=== PATIENT | female | born 1970 | race Caucasian/White ===

== ENCOUNTER 2019-04-23 10:57 | Day surgery (SDC) | payer OTHER, SELFPAY | END 2019-04-23 13:14 | disposition home or self-care (01) | PROVIDERS: Family Provider Family Medicine; Visit Provider Surgery | DX: R19.5 Other fecal abnormalities (principal); D12.2 Benign neoplasm of ascending colon; D12.4 Benign neoplasm of descending colon; K21.9 Gastro-esophageal reflux disease without esophagitis; Z83.3 Family history of diabetes mellitus | CPT/HCPCS: 45380; 45385; 88305; J2704 ==

== ENCOUNTER 2021-05-19 10:07 | Outpatient (CLI) | payer OTHER, SELFPAY ==
--- NOTE | 2021-05-19 10:14 | MM_ITS ---
WS: [id number] BILATERAL SCREENING DIGITAL MAMMOGRAM WITH CAD HISTORY: SCREENING COMPARISON: 11/20/2018 Bilateral CC and MLO views submitted. Computer aided detection analyzed. Breast composition: There are scattered areas of fibroglandular density. No suspicious masses, microc alcifications or architectural distortion. Prior biopsy clip upper outer quadrant of the LEFT breast. Calcifications adjacent to the biopsy clip are unchanged. MM/[place] [id number] IMPRESSION: BI-RADS: 2-Benign FOLLOW UP: 1 Year Follow-up
== END 2021-05-19 10:08 | disposition home or self-care (01) ==
LOC: RADSHAW 10:12
PROVIDERS: PCP Family Medicine; Visit Provider Family Medicine
DX: Z12.31 Encounter for screening mammogram for malignant neoplasm of breast (principal)
CPT/HCPCS: 77067

== ENCOUNTER 2021-12-12 17:36 | Emergency (ER) | payer OTHER, SELFPAY ==
[2021-12-12 17:57] VITALS: BP 115/76; PULSE 104; RESP 16; TEMP 37; O2SAT 96; BMI 24.4
--- NOTE | 2021-12-12 18:27 | ED_ITS ---
HPI - Nausea/Vomiting/Diarrhea General: Chief complaint: Nausea/Vomiting/Diarrhea Stated complaint: dehydration/possible seizure/vomiting Time Seen by Provider: 12/12/21 18:26 History of Present Illness: Ms. Willis is a 51-year-old lady who presents to the emergency department due to abdominal pain, nausea, vomiting. Symptoms started subacutely this morning without specific known provoking factor. She has had multiple episodes of vomiting that have occurred multiple times per hour. No hematemesis. Mostly water/stomach contacts at this point. She additionally is noted to have stuttering and is confused about possibility of stroke. Overall course has persisted. She has had similar episodes in the past. Intensity is moderate to severe. No other specific perales es in health, exacerbating, or alleviating factors identified. Onset (ago): hour(s) Description of vomiting: watery Associated nausea: Yes Associated abdominal pain: Yes Location of pain: Diffuse Severity: moderate Quality: cramping Exacerbating factors: eating Relieving factors: none Associated symtoms: Reports nausea Review of Systems General: Reports: 10 or more systems reviewed and unremarkable except in HPI and below GI: Reports: nausea PFSH ED PFSH: Medical History (Updated 12/19/21 @ 23:45 by Roberto Seymour MD) History of renal calculi Surgical History (Updated 12/19/21 @ 23:45 by Roberto Seymour MD) History of carpal tunnel release of both wrists Social History (Updated 12/19/21 @ 23:45 by Roberto Seymour MD) Smoking and tobacco status: never smoked Physical Exam Const: COMMON NORMALS: patient oriented x3 and alert GENERAL APPEARANCE: cooperative, well developed and ill appearing (Somewhat, vomiting) HENMT: COMMON NORMALS: normocephalic and atraumatic HEAD & SCALP: normocephalic and atraumatic Eye: COMMON NORMALS: conjunctivae normal CONJUNCTIVA: Yes conjunctivae normal SCLERA: sclerae normal Neck/C-Spine: COMMON NORMALS: supple GENERAL: Yes trachea midline Resp: COMMON NORMALS: normal respiratory effort EFFORT & INSPECTION: Yes able to speak in complete sentences Cardio: COMMON NORMALS: regular rhythm RATE: tachycardic RHYTHM: regular rhythm GI: COMMON NORMALS: Soft to palpation PALPATION: Yes Soft to palpation, Yes Tenderness to palpation present (GI), No Guarding due to palpation present (GI), No Rigid due to palpation and No Rebound tenderness present PERCUSSION: normal to percussion Extremity: GENERAL: Yes normal exam except as noted and No edema Neuro: COMMON NORMALS: patient oriented x3, CN's II-XII intact bilaterally, moves all extremities, no focal motor deficits and no sensory deficits noted SENSORIUM/ORIENTATION: Yes alert and No Orientation impaired OTHER: Intermittent stutter Psych: COMMON NORMALS: mental status grossly normal and Normal thought process present THOUGHT PROCESS: Normal thought process present Course ED course: - Patient was seen and evaluated by me at bedside - Patient placed on cardiac monitors, IV access obtained - Initial evaluation notable for exam as above - Labs personally interpreted by me - Fluids and antiemetic given - Labs notable for mild leukocytosis, hemoconcentration. Metabolic panel with evidence of dehydration. No evidence of urinary tract infection given nitrate negative and squamous epithelial contamination. - Imaging notable for negative head CT. CT abdomen pelvis notable for gastritis and enteritis. - Upon serial reexamination after treatment the patient was improved - Based on patient history, evaluation, and testing as interpreted the most likely cause of the patient's condition is gastritis and enteritis. In absence of other neurologic symptoms started is not felt to be primary neuro. - The results of ED evaluation were discussed with the patient including prescriptions and/or symptomatic cares (if applicable) including appropriate and responsible use, followup plan, and return precautions. The patient verbalized understanding and felt safe for discharge. - Patient discharged in satisfactory condition. Note: Click bubbles or prepopulated troy in note writing are used for assistance with data collection and billing and are inherently more limited than narrative and other text portions of this note. Please use narrative for additional clinical history and defer to narrative/free test for any case of contradictory information. If information appears in only free text or click bubble it should be considered present or absent as reported. Please contact note appeals writer for clarifications of clinical information or contradictory information. MDM is a brief summary, contradictory or erroneous seeming information should be clarified and full note should be reviewed. Vital Signs: Vital signs: Vital Signs Temperature 98.6 F 12/12/21 22:18 Pulse Rate 76 12/12/21 22:18 Respiratory Rate 16 12/12/21 22:18 Blood Pressure 113/67 12/12/21 22:18 Pulse Oximetry 97 12/12/21 22:18 MDM - Nausea/Vomiting/Diarrhea Medical Decision Making 51-year-old lady presenting with concern over nausea, vomiting, abdominal discomfort, and stutter. Improved with treatment. Tolerated p.o. CT imaging notable for gastritis and enteritis. Satisfactory for outpatient management. Medical Records I reviewed the patient's medical records. Lab Data I reviewed the patient's lab results. : 12/12/21 19:00 12/12/21 19:00 Radiology Impressions Abdomen/Pelvis CT 12/12/21 18:52 IMPRESSION: 1. The stomach is distended with fluid and air. The gastric antrum appears thickened, which may indicate mild gastritis. 2. Mild mural thickening of the proximal/mid small bowel with mucosal enhancement. Consider mild enteritis. 3. No acute abnormality demonstrated of the solid organs. Head CT 12/12/21 18:52 IMPRESSION: No significant findings Laboratory Results WBC 12.8 10^3/uL (4.0-10.0) H 12/12/21 19:00 RBC 5.26 10^6/uL (4.1-5.3) 12/12/21 19:00 Hgb 15.8 g/dL (11.5-15.3) H 12/12/21 19:00 Hct 47.8 % (37.0-47.0) H 12/12/21 19:00 MCV 90.9 fl (81-99) 12/12/21 19:00 MCH 30.0 pg (28.0-34.0) 12/12/21 19:00 MCHC 33.1 g/dL (30.0-36.0) 12/12/21 19:00 RDW 13.0 % (12.1-15.1) 12/12/21 19:00 Plt Count 256 10^3/cmm (130-400) 12/12/21 19:00 MPV 11.2 fL (7.4-10.4) H 12/12/21 19:00 Neut % (Auto) 93.4 % 12/12/21 19:00 Lymph % (Auto) 3.6 % 12/12/21 19:00 Randall % (Auto) 1.9 % 12/12/21 19:00 Eos % (Auto) 0.4 % 12/12/21 19:00 Baso % (Auto) 0.5 % 12/12/21 19:00 Neut # (Auto) 11.94 10^3/uL (1.8-7.7) H 12/12/21 19:00 Lymph # (Auto) 0.5 10^3/uL (0.8-4.8) L 12/12/21 19:00 Randall # (Auto) 0.2 10^3/uL (0.2-0.9) 12/12/21 19:00 Eos # (Auto) 0.1 10^3/uL (0.0-0.8) 12/12/21 19:00 Baso # (Auto) 0.1 10^3/uL (0.0-0.1) 12/12/21 19:00 Nucleated RBC % (auto) 0 % 12/12/21 19:00 Nucleated RBCs # 0.0 /100WBC 12/12/21 19:00 Sodium 136 mmol/L (136-145) 12/12/21 19:00 Potassium 3.6 mmol/L (3.5-5.1) 12/12/21 19:00 Chloride 102 mmol/L (98-107) 12/12/21 19:00 Carbon Dioxide 19 mmol/L (22-29) L 12/12/21 19:00 Anion Gap 18.6 (5-19) 12/12/21 19:00 BUN 16 mg/dL (6-20) 12/12/21 19:00 Creatinine 0.5 mg/dL (0.5-0.9) 12/12/21 19:00 GFR Calculation 129.1 mL/min (90-130) 12/12/21 19:00 Glucose 119 mg/dL (65-115) H 12/12/21 19:00 Calculated Osmolality 284 mOsm/kg (285-295) L 12/12/21 19:00 Lactic Acid 1.1 mmol/L (0.5-2.2) 12/12/21 20:40 Calcium 9.5 mg/dL (8.5-10.5) 12/12/21 19:00 Total Bilirubin 0.5 mg/dL (0.15-1.2) 12/12/21 19:00 AST 21 U/L (0-32) 12/12/21 19:00 ALT 22 U/L (0-33) 12/12/21 19:00 Alkaline Phosphatase 73 IU/L (35-105) 12/12/21 19:00 Total Protein 7.9 g/dL (6.6-8.7) 12/12/21 19:00 Albumin 4.6 g/dL (3.5-5.2) 12/12/21 19:00 Globulin 3.3 g/dL (1.3-4.6) 12/12/21 19:00 Lipase 21 U/L (13-60) 12/12/21 19:00 HCG, Qual Negative (Negative) 12/12/21 19:00 Urine Color Yellow (Yellow) 12/12/21 20:26 Urine Appearance Clear (CLEAR) 12/12/21 20:26 Urine pH 5 (5-7) 12/12/21 20:26 Ur Specific [place] 1.015 (1.005-1.030) 12/12/21 20:26 Urine Protein Trace (Negative) 12/12/21 20:26 Urine Glucose (UA) Norm (Normal) 12/12/21 20:26 Urine Ketones 2+ (Negative) H 12/12/21 20:26 Urine Blood Neg (Negative) 12/12/21 20:26 Urine Nitrate Negative (Negative) 12/12/21 20:26 Urine Bilirubin Neg (Negative) 12/12/21 20:26 Urine Urobilinogen Norm mg/dL (Negative) 12/12/21 20:26 Ur Leukocyte Esterase 1+ (Negative) H 12/12/21 20:26 Urine RBC 0-4 /hpf (0-2) H 12/12/21 20:26 Urine WBC 5-10 /hpf (0-5) H 12/12/21 20:26 Ur Squamous Epith Cells 10-15 /hpf (0-5) H 12/12/21 20:26 Amorphous Sediment Not Reportable 12/12/21 20:26 Urine Bacteria 1+ /hpf (NONE) H 12/12/21 20:26 Discharge Plan Discharge Patient Disposition: Home Clinical Impression: Enteritis, Dehydration Condition: Stable Prescriptions: New ondansetron 4 mg tablet,disintegrating 4 mg PO Q8H PRN (Reason: nausea and vomiting) Qty: 15 0RF azithromycin 500 mg tablet See Rx Instructions .ROUTE .COMPLEX Qty: 3 0RF Rx Instructions: For 500 mg dose pack: take 500 mg once daily for 3 days Discharge Orders: Discharge ED (Routine); Ordered 12/12/21 Ordered By: Roberto Seymour Referrals: Ronaldo Contreras MD [Primary Care Provider] - Discharge Diet: Advance as tolerated and Clear Liquid Discharge Activity: Increase activity as tolerated Patient Instructions: Dehydration (ED), Enteritis (ED), Opioid Safety Activity Restrictions/Additional Instructions: Thank you for visiting the emergency department. You were seen and evaluated for abnormal speech pattern, nausea, vomiting, abdominal pain. You are found to have enteritis which likely explains your symptoms and you were found to be dehydrated. You will be given a prescription for nausea medication, please ensure that you are staying hydrated. You will be given a prescription for antibiotics. For discomfort you may use [id number] medications however pl ease do not exceed the daily recommended dosage and please keep in mind that many namebrand medications contain the same active ingredients. Please follow-up with your primary care provider. Please return to the emergency department for worsening symptoms, uncontrolled pain, inability to tolerate oral intake despite treatment, any neurologic deficits/symptoms or anything else that you are concerned about and feel needs emergency department evaluation. Coding Level of Care Code ED Guest Services Attendant for Chun Doherty
[2021-12-12 18:43] VITALS: BP 114/81; PULSE 100; RESP 16; TEMP 37; O2SAT 99
--- NOTE | 2021-12-12 18:52 | CTR_ITS ---
PROCEDURE INFORMATION: Exam: CT Head Without Contrast Exam date and time: 12/12/2021 7:56 PM Age: 51 years old Clinical indication: Speech disturbance; Patient HX: Confusion and stutter; Additional info: Confusion, speech disturbance TECHNIQUE: Imaging protocol: Computed tomography of the head without contrast. Radiation optimization: All CT scans at this facility use at least one of these dose optimization techniques: automated exposure control; mA and/or kV adjustment per patient size (includes targeted exams where dose is matched to clinical indication); or iterative reconstruction. COMPARISON: CT head wo con* [id number] 12/09/2017 2:04 AM RADIATION DOSE METRICS: Total DLP (mGy-cm): 739.68 FINDINGS: Brain: No CT evidence for acute ischemia, mass or hemorrhage. Incidental bilateral symmetric basal ganglia calcifications. Cerebral ventricles: No ventriculomegaly. Paranasal sinuses: Visualized sinuses are unremarkable. No fluid levels. Mastoid air cells: Visualized mastoid air cells are well aerated. Bones/joints: Unremarkable. No acute fracture. Soft tissues: Unremarkable. CT/CT head wo con* [id number] IMPRESSION: No significant findings
--- NOTE | 2021-12-12 18:52 | CTR_ITS ---
PROCEDURE INFORMATION: Exam: CT Abdomen And Pelvis With Contrast Exam date and time: 12/12/2021 8:00 PM Age: 51 years old Clinical indication: Abdominal pain; Generalized; Patient HX: C/O abd pain w n/v/d; Additional info: Generalized abd pain, n/v TECHNIQUE: Imaging protocol: Computed tomography of the abdomen and pelvis with contrast. Radiation optimization: All CT scans at this facility use at least one of these dose optimization techniques: automated exposure control; mA and/or kV adjustment per patient size (includes targeted exams where dose is matched to clinical indication); or iterative reconstruction. Contrast material: OMNI 300; Contrast volume: 75 ml; Contrast route: INTRAVENOUS (IV); COMPARISON: No relevant prior studies available. RADIATION DOSE METRICS: Total DLP (mGy-cm): 882.79 FINDINGS: Lungs: The lung bases appear unremarkable. Liver: Multiple low-density liver lesions, too small to characterize, likely representing small cysts or hemangiomas. Gallbladder and bile ducts: No calcified stones. No ductal dilation. Pancreas: The pancreas is normal in appearance. No pancreatic duct dilatation. Spleen: The spleen is normal in size and appearance. Adrenal glands: The adrenal glands appear within normal limits. Kidneys and ureters: The kidneys are normal in morphology. No hydronephrosis. No solid mass. Stomach and bowel: The stomach is distended with fluid and air. The gastric antrum appears thickened, which may indicate mild gastritis. Mild mural thickening of the proximal/mid small bowel with mucosal enhancement. Consider mild enteritis. No small bowel obstruction. Moderate retained stool throughout the colon. No inflammatory change of the colon. Appendix: The appendix is normal in appearance. No evidence of appendicitis. Intraperitoneal space: No pneumoperitoneum. No significant fluid collection. Vasculature: No abdominal aortic aneurysm. Lymph nodes: No pathologically enlarged lymph nodes are demonstrated. Urinary bladder: The urinary bladder is unremarkable in appearance. Reproductive: Uterus and adnexa appear unremarkable. Bones/joints: No fracture or other acute osseous abnormality. Soft tissues: Unremarkable. CT/CT abdomen pelvis w con* [id number] IMPRESSION: 1. The stomach is distended with fluid and air. The gastric antrum appears thickened, which may indicate mild gastritis. 2. Mild mural thickening of the proximal/mid small bowel with mucosal enhancement. Consider mild enteritis. 3. No acute abnormality demonstrated of the solid organs.
[2021-12-12 19:12] LABS: Basophils # 0.1 10^3/uL (0.0-0.1); Basophils % 0.5 %; Eosinophils # 0.1 10^3/uL (0.0-0.8); Eosinophils % 0.4 %; Hematocrit 47.8 % (37.0-47.0); Hemoglobin 15.8 g/dL (11.5-15.3); Lymphocytes # 0.5 10^3/uL (0.8-4.8); Lymphocytes % 3.6 %; Mean Corpuscular HGB Conc 33.1 g/dL (30.0-36.0); Mean Corpuscular Volume 90.9 fl (81-99); Mean Platelet Volume 11.2 fL (7.4-10.4); Monocytes # 0.2 10^3/uL (0.2-0.9); Monocytes % 1.9 %; Neutrophils # 11.94 10^3/uL (1.8-7.7); Neutrophils % 93.4 %; Nucleated Red Blood Cells % 0 %; Platelet Count 256 10^3/cmm (130-400); Red Blood Count 5.26 10^6/uL (4.1-5.3); White Blood Count 12.8 10^3/uL (4.0-10.0)
[2021-12-12] MEDS: ondansetron 2 mg/ML SDV 2 mL 4 MG IVP ×2 (19:15→22:05)
[2021-12-12] MEDS: lactated ringers 1,000 ML 999 ML IV (19:16)
[2021-12-12 19:24] VITALS: BP 113/60; PULSE 78; RESP 16; O2SAT 97
[2021-12-12 19:35] LABS: HCG, Serum Qual Negative (Negative)
[2021-12-12 19:41] LABS: Alanine Aminotransferase 22 U/L (0-33); Albumin Level 4.6 g/dL (3.5-5.2); Alkaline Phosphatase 73 IU/L (35-105); Anion Gap 18.6 (5-19); Aspartate Amino Transferase 21 U/L (0-32); Blood Urea Nitrogen 16 mg/dL (6-20); Calcium 9.5 mg/dL (8.5-10.5); Carbon Dioxide 19 mmol/L (22-29); Chloride 102 mmol/L (98-107); Globulin 3.3 g/dL (1.3-4.6); Glomerular Filtration Rate 129.1 mL/min (90-130); Glucose 119 mg/dL (65-115); Lipase 21 U/L (13-60); Osmolality Calculated 284 mOsm/kg (285-295); Potassium 3.6 mmol/L (3.5-5.1); Sodium 136 mmol/L (136-145); Total Bilirubin 0.5 mg/dL (0.15-1.2); Total Protein 7.9 g/dL (6.6-8.7)
[2021-12-12] MEDS: iohexol 300 mg/mL 100 mL Btl IV (20:00)
[2021-12-12 20:40] VITALS: BP 106/66; PULSE 78; RESP 16; O2SAT 97
[2021-12-12 20:57] LABS: Specific Gravity, Urine 1.015 (1.005-1.030); Urine Appearance Clear (CLEAR); Urine Color Yellow (Yellow); pH Urine 5 (5-7)
[2021-12-12 20:58] LABS: Add Urine Microscopic? YES; Bilirubin Urine Neg (Negative); Blood Urine Neg (Negative); Glucose Urine UA Norm (Normal); Ketones Urine 2+ (Negative); Leukocyte Esterase Urine 1+ (Negative); Nitrate Urine Negative (Negative); Protein Urine Trace (Negative); RBC Urine 0-4 /hpf (0-2); Urobilinogen Urine Norm (Negative)
[2021-12-12 20:59] LABS: Add Urine Culture? No; Bacteria Urine 1+ /hpf
[2021-12-12 21:02] LABS: Lactic Sepsis W/Reflex 1.1 mmol/L (0.5-2.2)
[2021-12-12 22:06] VITALS: BP 113/67; PULSE 76; RESP 16; O2SAT 97
[2021-12-12 22:18] VITALS: BP 113/67; PULSE 76; RESP 16; TEMP 37; O2SAT 97
== END 2021-12-12 22:21 | disposition home or self-care (01) ==
PROVIDERS: Nurse Practitioner Family; Emergency Provider Emergency Medicine; PCP Family Medicine
DX: K52.9 Noninfective gastroenteritis and colitis, unspecified (principal); E86.0 Dehydration
CPT/HCPCS: 70450; 74177; 80053; 81001; 83605; 83690; 84703; 85025; 96374; 96376; 99284; J2405; Q9967

== ENCOUNTER 2022-05-14 14:29 | Emergency (ER) | payer OTHER, SELFPAY ==
--- NOTE | 2022-05-14 14:30 | XR_ITS ---
WS: [id number] Exam: XR wrist LT min 3V* [id number] Date/Time of Exam: 05/14/2022 2:30 PM Reason For Exam: pain after fall There is an impacted fracture of the distal radial metaphysis with dorsal angulation of the articulat ing surface and shortening. There is avulsion of the ulnar styloid. No dislocation. Soft tissue swell ing about the wrist. XR/XR wrist LT min 3V* [id number] IMPRESSION: 1. Impacted fracture of the distal radius with mild dorsal angulation and short ening. 2. Avulsion fracture of the ulnar styloid.
[2022-05-14 14:49] VITALS: PULSE 75; RESP 16; TEMP 36.6; O2SAT 98
--- NOTE | 2022-05-14 14:57 | W.ED.EXTPRO ---
HPI - Extremity Problem General: Chief complaint: Extremity Injury, Upper Stated complaint: Left wrist injury, fell on it Time Seen by Provider: 05/14/22 14:52 Source: patient and family Mode of arrival: ambulatory Limitations: no limitations History of Present Illness: 52-year-old female presents to the ER today for left wrist pain. Patient reports she fell at 2:00 today and landed on her left wrist. Patient reports severe pain with any movement of the left wrist at this time. She reports some swelling of the left wrist also. Patient denies any prior injury. She has not taken anything for the pain at this time. Patient reports she fell and came straight to the ER. Patient denies any numbness or tingling of the hand. Review of Systems General: Reports: 10 or more systems reviewed and unremarkable except in HPI and below PFSH ED PFSH: Medical History History of renal calculi Surgical History History of carpal tunnel release of both wrists Social History Smoking and tobacco status: never smoked Physical Exam Const: COMMON NORMALS: average body habitus, patient oriented x3, no limitations, healthy appearing, alert and well nourished; apparent distress OTHER: Patient is in tears, very uncomfortable. Resp: COMMON NORMALS: normal respiratory effort EFFORT & INSPECTION: Yes able to speak in complete sentences Cardio: COMMON NORMALS: regular rate and regular rhythm RATE: regular rate RHYTHM: regular rhythm Extremity: NARRATIVE EXTREMITY EXAM: Patient has moderate swelling of the left wrist along with significant pain over the distal radius. Patient has decreased range of motion secondary to pain. No obvious bruising is noted at this time. No obvious deformity. Neuro: COMMON NORMALS: patient oriented x3 SENSORIUM/ORIENTATION: Yes alert Psych: COMMON NORMALS: mental status grossly normal, Normal thought process present and cooperative THOUGHT PROCESS: Normal thought process present Skin: COMMON NORMALS: no rashes or lesions noted and no wounds GENERAL SKIN EXAM: no rashes or lesions noted Course ED course: 52-year-old female presents to the ER today after falling at 2 PM. Patient reports severe pain in her left wrist. She has pain with any movement of the wrist. She reports moderate swelling. Patient has not taken thing for the pain at this time. Denies any prior injury to this wrist. We will get an x-ray at this time. Vital Signs: Vital signs: Vital Signs Temperature 97.8 F 05/14/22 14:49 Pulse Rate 75 05/14/22 14:49 Respiratory Rate 18 05/14/22 15:01 Pulse Oximetry 98 05/14/22 14:49 Oxygen Delivery Me thod 05/14/22 14:49 MDM - Extremity (Nontraumatic) Medical Decision Making 52-year-old female presents to the ER today after falling at 2 PM. Patient reports severe pain in her left wrist. She has pain with any movement of the wrist. She reports moderate swelling. Patient has not taken thing for the pain at this time. Denies any prior injury to this wrist. We will get an x-ray at this time. Patient has a left distal radius fracture and ulnar styloid avulsion fracture. Patient was placed in a short arm splint. We will have her follow-up with Ortho next week. Patient given morphine, 2 mg in the ER. Will send home with hydrocodone for the next several days until patient can follow-up with Ortho next week. Recommended rest, ice, elevation. Do not get splint wet. Return to the ER with any new or worsening symptoms. Patient verbalized understanding and was in agreement with the treatment plan. Lab Data Radiology Impressions Wrist X-Ray 05/14/22 14:30 IMPRESSION: 1. Impacted fracture of the distal radius with mild dorsal angulation and shortening. 2. Avulsion fracture of the ulnar styloid. Critical Care Time Critical Care Time: Critical Care Time: No Discharge Plan Discharge Patient Disposition: Home Clinical Impression: Fracture of distal end of left radius Qualifiers: Encounter type: initial encounter Fracture type: closed Fracture of ulnar styloid Qualifiers: Encounter type: initial encounter Fracture type: closed Fracture alignment: nondisplaced Laterality: left Qualified Code(s): S52.615A - Nondisplaced fracture of left ulna styloid process, initial encounter for closed fracture Condition: Stable Prescriptions: New hydrocodone-acetaminophen 5-325 mg tablet 1 tab PO Q6H PRN (Reason: pain) 4 Days Qty: 12 0RF No Action ondansetron 4 mg tablet,disintegrating 4 mg PO Q8H PRN (Reason: nausea and vomiting) Qty: 15 0RF azithromycin 500 mg tablet See Rx Instructions .ROUTE .COMPLEX Qty: 3 0RF Rx Instructions: For 500 mg dose pack: take 500 mg once daily for 3 days Discharge Orders: Discharge ED (Routine); Ordered 05/14/22 Ordered By: Akosua Juniro Referrals: Ronaldo Contreras MD [Primary Care Provider] - Discharge Diet: Usual diet Discharge Activity: Limit activity as instructed Patient Instructions: Opioid Safety Activity Restrictions/Additional Instructions: Keep arm elevated and apply ice to reduce swelling. Take hydrocodone as prescribed. Follow-up with Ortho next week. Return to the ER with any new or worsening symptoms. Coding Level of Care Code ED Desktop Administrator for Chun Doherty
[2022-05-14 15:01] VITALS: RESP 18
[2022-05-14] MEDS: morphine 4 mg/mL SDV 1 mL 2 MG IM (15:01)
--- NOTE | 2022-05-18 09:00 | DCPLANNER ---
Addendum entered by Idalmis Manzano 05/27/22 09:16: Patient had a follow up appointment scheduled with ortho - patient did attend appointment Addendum entered by Idalmis Manzano 05/20/22 08:37: Patient has a follow up appointment scheduled for , May 21, 2022 at 2:[address] Peters at ortho. Clinic will call patient with appointment information. Original Note: senior software project manager had message to schedule a follow up appointment for patient with ortho. senior software project manager sent patients information to the front office staff at ortho. Patients information will be printed and reviewed. Clinic will call patient with appointment information.
== END 2022-05-14 15:15 | disposition home or self-care (01) ==
PROVIDERS: Emergency Provider Physician Assistant; PCP Family Medicine
DX: S52.502A Unspecified fracture of the lower end of left radius, initial encounter for closed fracture (principal); S52.615A Nondisplaced fracture of left ulna styloid process, initial encounter for closed fracture; W19.XXXA Unspecified fall, initial encounter
CPT/HCPCS: 73110; 96372; 99284; J2270

== ENCOUNTER 2022-05-16 14:54 | Emergency (ER) | payer OTHER, SELFPAY ==
--- NOTE | 2022-05-16 15:21 | XRR_ITS ---
PROCEDURE INFORMATION: Exam: XR Right Shoulder Exam date and time: 05/16/2022 3:28 PM Age: 52 years old Clinical indication: Injury or trauma; Fall; Blunt trauma (contusions or hematomas); Shoulder; Right; Additional info: Right shoulder pain TECHNIQUE: Imaging protocol: Radiologic exam of the Right shoulder. Views: 2 or more views. COMPARISON: No relevant prior studies available. FINDINGS: Bones/joints: There are moderate degenerative changes across the acromioclavicular joint. There are ill-defined osseous densities adjacent to humeral head possibly in the glenohumeral joint space concerning for loose bodies larger of which measures 14 mm x 6 mm. Soft tissues: Normal. XR/XR shoulder RT min 2V* [id number] IMPRESSION: 1. There are ill-defined osseous densities adjacent to humeral head possibly in the glenohumeral joint space concerning for loose bodies larger of which measures 14 mm x 6 mm. 2. There are moderate degenerative changes across the acromioclavicular joint.
[2022-05-16 15:39] VITALS: BP 132/82; PULSE 74; RESP 18; TEMP 36.8; O2SAT 96; BMI 25.0
--- NOTE | 2022-05-16 17:39 | CTR_ITS ---
PROCEDURE INFORMATION: Exam: CT Right Upper Extremity Without Contrast, Shoulder Exam date and time: 05/16/2022 5:51 PM Age: 52 years old Clinical indication: Injury or trauma; Fall; Blunt trauma (contusions or hematomas); Shoulder; Right TECHNIQUE: Imaging protocol: Computed tomography of the Right upper extremity without contrast. Exam focused on the shoulder. Radiation optimization: All CT scans at this facility use at least one of these dose optimization techniques: automated exposure control; mA and/or kV adjustment per patient size (includes targeted exams where dose is matched to clinical indication); or iterative reconstruction. COMPARISON: CR (CHEST, ) 05/16/2022 3:28 PM RADIATION DOSE METRICS: Total DLP (mGy-cm): 175.63 FINDINGS: Bones/joints: There are moderate degenerative changes across the acromioclavicular joint. Soft tissues: There are ossified densities in soft tissues along the anterior aspect of the distal subscapularis tendon the largest of which measures 13 x 5 mm in the craniocaudad/AP dimensions. No evidence for acute fracture. CT/CT shoulder RT wo con* [id number] IMPRESSION: 1. There are ossified densities in the soft tissues along the anterior aspect of the distal subscapularis tendon likely representing sequela of chronic injury. No evidence for acute fracture. 2. There are moderate degenerative changes across the acromioclavicular joint.
--- NOTE | 2022-05-16 18:48 | W.ED.FALL ---
HPI - Fall General: Chief Complaint: Fall Stated Complaint: Right shoulder pain Time Seen by Provider: 05/16/22 17:33 History of Present Illness: 52-year-old female patient presents to the emergency department complaining of right shoulder pain. Patient states she was seen here a week ago for a fall and did fracture her left wrist however since the fall she has noticed she has been having right shoulder pain. Patient denies any numbness or tingling. Patient states she is unable to really move her arm due to the pain. Patient denies any fever. Patient denies any neck pain or back pain. Associated symptoms-after fall: Denies abdominal pain, chest pain, confusion, difficulty walking, headache(s), hematuria, lightheadedness, neck pain or vertigo Review of Systems Const: Denies: fever(s), chills, body aches, change in appetite, change in weight, fatigue, malaise or diaphoresis Eyes: Denies: change in vision, blurry vision, blind spots, photophobia, eye discomfort, eye discharge, eye redness, floaters or seeing flashes ENMT: Denies: throat pain, uvular edema, enlarged tonsils, odynophagia, hoarseness, mouth pain, swelling of lips/tongue, oral sores, bleeding gums, dental pain, dry mouth, ear or mastoid pain, ear discharge, change in hearing, tinnitus, disequilibrium, nasal discharge, nasal congestion, post nasal drip or sinus pain Card: Denies: chest pain, palpitations, irregular heart rhythm, edema, swelling of feet/ankles, lightheadedness, syncope, pre-syncope, dyspnea on exertion, orthopnea, leg pain with exertion or acrocyanosis Resp: Denies: dyspnea, productive cough, non-productive cough, wheezing, stridor, pain on inspiration, change in phlegm color, hemoptysis or chest congestion GI: Denies: abdominal pain, nausea, vomiting, hematemesis, dysphagia, diarrhea, constipation, GI cramping, change in bowel habits or rectal pain : Denies: flank pain, difficulty voiding, dysuria, urinary frequency, urinary urgency, urinary hesitancy or hematuria Musc: Reports: extremity pain; Denies: neck pain, back pain, extremity swelling, joint pain, joint swelling, joint redness, joint warmth or deformity Skin/Breast: Denies: rash, pruritus, erythema, sores, new lesions, changes in skin color or dry skin Neuro: Denies: headache(s), numbness in extremities, weakness in extremities, sensory changes, lack of coordination, difficulty walking, frequent falls, dizziness, vertigo, confusion, behavioral changes, Slurred speech present, difficulty communicating thoughts or seizure-like activity Psych: Denies: anxiety, depression, suicidal ideation or homicidal ideation Endo: Denies: polyuria, polydipsia, tired all the time, cold intolerance, excessive sweating, flushing, hot flashes or heat intolerance Ridge/Lymph: Denies: easy bruising, easy bleeding, petechiae, purpura, enlarged lymph nodes or tender lymph nodes All/Imm: Denies: urticaria, throat swelling, tongue swelling, facial swelling, acute wheezing or itchy eyes PFSH ED PFSH: Medical History History of renal calculi Surgical History History of carpal tunnel release of both wrists Social History Smoking and tobacco status: never smoked Physical Exam Const: COMMON NORMALS: no acute distress, average body habitus, patient oriented x3, no limitations, healthy appearing, alert and well nourished HENMT: THROAT: no uvular edema Neck/C-Spine: COMMON NORMALS: full ROM, no lymphadenopathy, supple and no meningeal signs : COMMON NORMALS: Yes no CVA tenderness BLADDER/KIDNEY EXAM: Yes no CVA tenderness Back/Pelvis: COMMON NORMALS: no CVA tenderness, thoracic and lumbar spine normal to inspection, no thoracic nor lumbar tenderness and thoraco-lumbar ROM normal Extremity: NARRATIVE EXTREMITY EXAM: Tenderness to anterior aspect of right shoulder. Patient has limited range of motion due to pain with flexion and extension. Patient is neurovascularly intact distally Neuro: COMMON NORMALS: patient oriented x3 SENSORIUM/ORIENTATION: Yes alert MENINGEAL SIGNS: Yes no meningeal signs Course Vital Signs: Vital signs: Vital Signs Temperature 98.3 F 05/16/22 19:51 Pulse Rate 71 05/16/22 19:51 Respiratory Rate 18 05/16/22 19:51 Blood Pressure 130/86 05/16/22 19:51 Pulse Oximetry 97 05/16/22 19:51 Oxygen Delivery Me thod 05/16/22 15:39 MDM - Fall Medical Decision Making Patient is well-appearing nontoxic and in no acute distress. 52-year-old female patient presents to the emergency department complaining of right shoulder pain. Patient states she was seen here a week ago for a fall and did fracture her left wrist however since the fall she has noticed she has been having right shoulder pain. Patient denies any numbness or tingling. Patient states she is unable to really move her arm due to the pain. Patient denies any fever. Patient denies any neck pain or back pain. X-ray is negative for any acute fracture or dislocation. Patient is neurovascular intact distally. Patient was advised to follow-up with primary care physician if there is no improvement in 1 to 2 weeks for possible MRI. Lab Data Radiology Impressions Shoulder X-Ray 05/16/22 15:21 IMPRESSION: 1. There are ill-defined osseous densities adjacent to humeral head possibly in the glenohumeral joint space concerning for loose bodies larger of which measures 14 mm x 6 mm. 2. There are moderate degenerative changes across the acromioclavicular joint. Shoulder CT 05/16/22 17:39 IMPRESSION: 1. There are ossified densities in the soft tissues along the anterior aspect of the distal subscapularis tendon likely representing sequela of chronic injury. No evidence for acute fracture. 2. There are moderate degenerative changes across the acromioclavicular joint. Discharge Plan Discharge Patient Disposition: Home Clinical Impression: Right shoulder strain Condition: Stable Prescriptions: New cyclobenzaprine 10 mg tablet 10 mg PO Q8H Qty: 20 0RF No Action hydrocodone-acetaminophen 5-325 mg tablet 1 tab PO Q6H PRN (Reason: pain) 4 Days Qty: 12 0RF ondansetron 4 mg tablet,disintegrating 4 mg PO Q8H PRN (Reason: nausea and vomiting) Qty: 15 0RF azithromycin 500 mg tablet See Rx Instructions .ROUTE .COMPLEX Qty: 3 0RF Rx Instructions: For 500 mg dose pack: take 500 mg once daily for 3 days Discharge Orders: Discharge ED (Routine); Ordered 05/16/22 Ordered By: Alma Delia Dao Referrals: Ronaldo Contreras MD [Primary Care Provider] - Discharge Diet: Advance as tolerated Discharge Activity: Increase activity as tolerated Patient Instructions: Opioid Safety Activity Restrictions/Additional Instructions: If no improvement follow up for possible mri Take medication as prescribed please do not drive or operate heavy machinery while taking return to er with worsening of symptoms Coding Level of Care Code ED Sounding Device Operator for Chun Doherty
[2022-05-16 19:51] VITALS: BP 130/86; PULSE 71; RESP 18; TEMP 36.8; O2SAT 97
[2022-05-16] MEDS: cyclobenzaprine 10 mg Tablet PO (19:51)
[2022-05-16] MEDS: ketorolac 30 mg/mL INJ IM (19:51)
== END 2022-05-16 19:53 | disposition home or self-care (01) ==
PROVIDERS: Emergency Provider Registered Nurse; PCP Family Medicine
DX: S46.911A Strain of unspecified muscle, fascia and tendon at shoulder and upper arm level, right arm, initial encounter (principal); W19.XXXA Unspecified fall, initial encounter
CPT/HCPCS: 73030; 73200; 96372; 99285; J1885

== ENCOUNTER → 2022-05-20 13:48 | Outpatient (BNVA) | payer OTHER, SELFPAY | PROVIDERS: PCP Family Medicine; Visit Provider Student in an Organized Health Care Education/Training Program | DX: S52.552A Other extraarticular fracture of lower end of left radius, initial encounter for closed fracture (principal); W19.XXXA Unspecified fall, initial encounter | CPT/HCPCS: 73110 ==

== ENCOUNTER 2022-05-26 11:06 | Day surgery (SDC) | payer OTHER, SELFPAY ==
[2022-05-25 08:52] VITALS: BMI 26.1
[2022-05-26] VITALS (16 sets, daily range): BP systolic 87–128; BP diastolic 57–84; PULSE 68–93; RESP 14–18; TEMP 36.2–36.7; O2SAT 93–100
--- NOTE | 2022-05-26 | SCC_ITS ---
Procedure done: Left distal radius open reduction internal fixation Interpretation fluoroscopic mini C arm imaging 110 seconds of fluoroscopic guidance, for a cumulative dose of 2.13 mGy, was provided to Dr. Peters by the radiology department. C-arm images of the LEFT wrist were saved for the patient's permanent record. [facility]IC[facility]
--- NOTE | 2022-05-26 11:37 | P.ANESASSM_ITS ---
Pre-Anesthetic Assessment Height/Weight: Height 1.47 m Weight 56.699 kg Temp Pulse Resp BP Pulse Ox O2 Del Method 97.8 F 93 18 128/80 99 05/26/22 11:29 05/26/22 11:29 05/26/22 11:29 05/26/22 11:29 05/26/22 11:29 05/26/22 11:30 Preop Diagnosis: Left displaced distal radius fracture Operation Date: 05/26/22 12:55 Proposed Procedures p OPEN REDUCTION INTERNAL FIXATION LEFT DISTAL RADIUS FRACTURE 82235,T14.8XXA(Left) - Nitin Lipscomb, DO Familial anesthetic complications: None Was Beta Pito taken within 24 hours: N/A Was Clonidine taken within 24 hours: N/A Last intake: Intake Last Liquid Date 05/25/22 Last Liquid Time 19:00 Last Solid Date 05/25/22 Last Solid Time 19:00 Social No alcohol and No tobacco Exam alert, oriented x 3, clear to auscultation bilaterally and regular rate & rhythm Airway Submandibular: within normal limits Cervical ROM: within normal limits Mallampati: Class I Dentition: full History/ROS No significant complaints Pulmonary None reported CV/HEM None reported Hx of kidney stones Hepatic None reported GI None reported Metabolic None reported Musc/skel None reported Fracture of radius Neuropsych Neuropathy (Hx of b/l carpal tunnel ) Anesthetic Plan ASA status: 1 Anesthesia: Anesthesia Evaluation, General and Regional (specify below) (Supraclavicular block) Other: We discussed risk and benefits of general anesthesia including PONV, sore throat (sometimes severe), corneal abrasion, positioning and peripheral nerve injuries, life threatening allergic reaction, post operative ICU admission requiring prolonged intubation, stroke, heart attack, , and rare incidences of recall. Patient consents to proceed with general anesthesia. After time out sterile prep, using sterile technique, and using real time US guidance for target selection needle was inserted with real time visualization of needle entry and real time visualization of needle advancement toward intended target. Negative aspiration. LA injected incrementally with negative aspiration every 5 cc and real time US visualization of LA spread throughout procedure. Tolerated well. Image(s) saved. Plan general with supraclavicular nerve block Risk of > 500 ml blood loss (7ml/kg in children): No Medications/Allergies Home Medications Medication Instructions Recorded Confirmed Last Taken Type hydrocodone 5 mg-acetaminophen 325 1 tab PO Q6H PRN Pain 05/25/22 05/26/22 05/24/22 History mg tablet ibuprofen 200 mg tablet (Ibuprofen 800 mg PO TID PRN Pain 05/25/22 05/26/22 05/23/22 History IB) valacyclovir 500 mg tablet 500 mg PO PRN flare ups 05/25/22 05/26/22 05/19/22 History Allergies Allergy/AdvReac Type Severity Reaction Status Date / Time oxycodone Allergy ADR-Nausea Verified 05/20/22 13:54 [facility] Anesthesia Medical History Closed extra-articular fracture of distal end of left radius History of renal calculi Surgical History History of carpal tunnel release of both wrists Social History Smoking and tobacco status: never smoked Data Anesthesia Cardiac Studies: No Data to Display
[2022-05-26] MEDS: acetaminophen 1,000 MG/100 ML PIGGYBACK 400 MG IV (11:44)
[2022-05-26] MEDS: sodium chloride 0.9% 1,000 ML 30 ML IV (11:46)
[2022-05-26] MEDS: scopolamine 1.5 Patch 1 PATCH TRANSDERMA (11:47)
[2022-05-26] MEDS: ketorolac 30 mg/mL INJ IVP (11:50)
[2022-05-26] MEDS: diphenhydrAMINE 50 mg/mL SDV 1mL 12.5 MG IVP (12:09)
--- NOTE | 2022-05-26 13:07 | W.PM.OPSUD ---
Surgery/Procedure H&P Update DATE OF PROCEDURE: May 26, 2022 DATE H&P PERFORMED: 05/20/22 CHANGES TO PREVIOUS DOCUMENTATION: None PREOP DIAGNOSIS: Left displaced distal radius fracture PRIMARY INDICATION FOR PROCEDURE: Displaced and angulated left distal radius fracture PLANNED PROCEDURE: Operation Date: 05/26/22 12:55 Proposed Procedures p OPEN REDUCTION INTERNAL FIXATION LEFT DISTAL RADIUS FRACTURE 37050,T14.8XXA(Left) - Nitin Peters DO
[2022-05-26] MEDS: ceFAZolin 2,000 MG in sodium chloride 0.9% (plus) 50 ML 100 MG IV (13:33)
--- NOTE | 2022-05-26 14:08 | ANES.PROC ---
Anesthesia Procedures Procedure/Date: 05/26/22 Nerve Block ^: Nerve Block 1: Main Anesthesia: general anesthesia Time Out Performed: Yes Consent: requested by attending/covering physician, from patient, risks and benefits reviewed and patient agrees to proceed Nerve block location: supraclavicular Anesthesia monitors applied: pulse oximetry, EKG and BP cuff Nerve block position: semi sitting Anesthetic Used: ropivicaine 0.5% Amount of anesthesia used (mL): 15 Ultrasound used to: recognize landmarks and in supraclavicular region Nerve Stimulator Used?: No Interscalene/Femoral BLK: 2 stimuplex 22 g needle used for position and inplane approach, visualize local anesthetic spread and no vascular puncture identified Injection: neg aspiration of heme Patient Tolerated Procedure: well Complications: none Additional Comments: After time out sterile prep, using sterile technique, and using real time US guidance for target selection needle was inserted with real time visualization of needle entry and real time visualization of needle advancement toward intended target. Negative aspiration. LA injected incrementally with negative aspiration every 5 cc and real time US visualization of LA spread throughout procedure. Tolerated well. Image(s) saved.
--- NOTE | 2022-05-26 14:08 | ANE.PACU2 ---
Inpatient post-anesthesia follow up: Airway intact: Yes Vital signs: Temperature 97.8 F Pulse Rate 75 Respiratory Rate 14 Blood Pressure 115/80 Pulse Oximetry 98 Oxygen Delivery Me thod Room Air Oxygen Flow Rate Fraction of Inspir ed Oxygen Hydration adequate: Yes Nausea and vomiting: No Pain level: 4 Mental status: Baseline
--- NOTE | 2022-05-26 14:50 | P.OP_ITS ---
Brief Operative Note Date of procedure: 05/27/22 Pre-op diagnosis: Extra-articular left distal radius fracture with ulnar styloid fracture Post-op diagnosis: same Procedure Done: Open reduction internal fixation left distal radius extra-articular Surgeon: Nitin Peters Estimated blood loss (mL): 20 Complications: None Post-op Plan: Patient recover in PACU. Patient received appropriate discharge instructions as well as pain medication postoperatively. Patient received regional anesthesia pain controlled. Patient to leave splint on in place until follow-up be nonweightbearing to the left upper extremity. We will see me in office in 2 weeks. Understands she has any questions she may contact the office. Condition: stable Disposition: same day Coding Level of Care Code Acute Performance Improvement Consultant for Chun Doherty
--- NOTE | 2022-05-26 14:54 | P.PCN_ITS ---
PACU note Narrative: Patient seen and evaluated in PACU. Regional anesthesia still in effect and limits examination she is able to start subtly wiggling her fingers. Hand warm and well-perfused. Fingers brisk capillary refill less than 2 seconds. Compartment soft compressible around splint. Splint on and in place a nd clean dry and intact. Exam: somnolent, arousable (Examination limited secondary to regional anesthesia see narrative for detailed exam.) Disposition: discharged
--- NOTE | 2022-05-26 15:00 | P.OP_ITS ---
Operative Report Date of procedure: May 27, 2022 Pre-op diagnosis: Preop Diagnosis Left displaced distal radius fracture Post-op diagnosis: same (Left distal radius fracture extra-articular, with ulnar styloid fracture) Procedure done: Left distal radius open reduction internal fixation Interpretation fluoroscopic mini C arm imaging Implants: [place] left short narrow volar distal radius plate Proximal 2.7 nonlocking screws x2 Proximal 2.7 locking screws x2 Distal fixation 2.4 nonlocking screw used to compress plate to bone and was removed Distal fixation 2.4 locking screws x3 Surgeon: Nitin Peters DO Estimated blood loss (mL): 20 37 minutes IV fluids: See anesthesia record Complications: None Findings: See operative note Condition: stable Disposition: same day Brief History: Patient was seen evaluate in the outpatient setting. Patient sustained a fall onto outstretched left hand and sustained a extra-articular left distal radius fracture. We had detailed discussion in the office about nonoperative and operative intervention. Given the dorsal angulation and dorsal comminution we will given her young age and activity level would recommend open reduction internal fixation left distal radius fracture. Did give her the option of nonoperative and operative intervention she understands the risk benefits complications alternatives to each. Risks include but not limited to make it better, make it worse, malunion, nonunion, injury to nerves or vessels, infection, decreased range of motion to the hand and wrist and with these understandings of risks she does agree to proceed with surgical intervention which I do feel will help her return to earlier range of motion to her wrist. As result shared decision making patient agrees to proceed with surgical intervention. Consent was obtained in office. She agrees to proceed with surgery. All questions answered. Procedure: Patient was seen evaluated preoperative holding area. Consent was reviewed with patient. Correct extremity was marked. Patient was seen and evaluated by preoperative team as well as anesthesia. Patient underwent regional anesthesia. Taken to the operative suite and placed on the OR table in supine position. Left upper extremity was then placed on arm table. Nonsterile tourniquet applied to the left upper extremity. Patient underwent anesthesia per the anesthesia department. Once appropriately anesthetized the left upper extremity was then prepped and draped in standard orthopedic fashion. Final timeout performed. Patient received appropriate preoperative antibiotics. Esmarch tourniquet was used to exsanguinate the extremity and tourniquet i nflated to 250 mmHg. A standard FCR volar approach was then used. Sharp scalpel excision through skin and subcutaneous tissue directly over the FCR sheath FCR was then mobilized distally and proximally and the floor of the FCR sheath was incised with Littler dissection scissors distally. FPL was swept ulnarly with FCR and direct visualization of pronator quadratus was identified as well as fracture. Sharp scalpel excision released PQ from radial order to ulnar fracture site was identified and found to be extra-articular. A [place] was used to mobilize and decompress fracture hematoma which was cleared out and this was levered back over with a closed reduction maneuver and and smooth contour fashion of the volar cortex. Reduction was then visualized and mini C arm in AP and lateral images and found to be holiness of radial inclination height and volar tilt. Next I selected a left short narrow volar distal radius plate with the grafter. This was secured into place with K wires and confirmed to be in appropriate placement. Proximal oblong cortical screw was then placed to bring the plate to bone. Small adjustments were made sliding the plate slightly proximal to make sure plate was proximal to watershed line. It was noted that the plate sat more flush distally how this was to distal and was distal to watershed line. At this standpoint I had to bring the plate slightly proximal in order to obtain cortical fixation in my distal fracture fragment while at the same time keeping my plate proximal to watershed line. This placed my screws just distal to the fracture site, Which had excellent raft during of the distal fracture fragment in subchondral bone. Once in appropriate position we then utilized a fully threaded cortical screw which was then drilled in the middle distal hole which come pressed the plate to bone distally. Once we are satisfied with our plate plate placement as well as reduction I then placed drilled and placed 2 locking screws around the cortical screw which was then subsequently backed out and an appropriate length locking screw completing her distal fixation with 3 fully threaded locking screws. Next I completed our proximal fixation with with a combination of locking and nonlocking screws. This completed our fixation. Brought in the mini C arm for final images of AP oblique lateral and radial inclination view. Appropriate length screws noted with appropriate best buttressing of the distal fracture fragment. No dorsal cortex penetration in my distal locking screws. Excellent fixation and wrist DRUJ was stressed as well as wrist was taken through range of motion with no clicking. Ulnar styloid avulsion was left alone. Tourniquet was then deflated. Hemostasis was achieved with electrocautery and pressure. Wound was thoroughly irrigated. Fingers are warm well perfused. PQ was then laid over the volar plate. Subcutaneous tissue was approximated with 3-0 Vicryl. Skin was then closed with a running horizontal mattress nylon suture. Incision was covered with Xeroform 4 x 4's ABD Curlex and a volar splint with Brandyn wrap. Patient was awakened from anesthesia and taken to PACU in stable condition. Patient tolera anna procedure without complications Disposition: Patient to recover in PACU. Patient received appropriate discharge instructions as well as pain medication postoperatively. Should be nonweightbearing to the left upper extremity. Maintain splint until follow-up. Will be seen evaluated in 2 weeks. She understands if she has any questions she can contact the office.
[2022-05-26] MEDS: fentaNYL 50 mcg/mL INJ 2mL IVP (15:15)
[2022-05-26] MEDS: HYDROcodone-acetaminophen 5-325 mg Tablet 1 TAB PO (16:34)
== END 2022-05-26 18:00 | disposition home or self-care (01) ==
PROVIDERS: PCP Family Medicine; Visit Provider Student in an Organized Health Care Education/Training Program
PROC: (CPT 25607; principal; 2022-05-26 12:45)
DX: S52.502A Unspecified fracture of the lower end of left radius, initial encounter for closed fracture (principal); S52.612A Displaced fracture of left ulna styloid process, initial encounter for closed fracture; Z88.5 Allergy status to narcotic agent; W18.39XA Other fall on same level, initial encounter
CPT/HCPCS: 25607; 76000; C1713; J1100; J1200; J1885; J2250; J2405; J2704; J3010; J3490; J7030

== ENCOUNTER → 2022-06-10 08:30 | Outpatient (BNVA) | payer OTHER, SELFPAY | PROVIDERS: PCP Family Medicine; Visit Provider Student in an Organized Health Care Education/Training Program | DX: S52.552A Other extraarticular fracture of lower end of left radius, initial encounter for closed fracture (principal); X58.XXXA Exposure to other specified factors, initial encounter | CPT/HCPCS: 73110 ==

== ENCOUNTER 2022-06-10 15:36 | Outpatient (CLI) | payer OTHER, SELFPAY | END 2022-06-10 15:37 | disposition home or self-care (01) | LOC: SPT 15:37 | PROVIDERS: PCP Family Medicine; Visit Provider Student in an Organized Health Care Education/Training Program | DX: Z46.89 Encounter for fitting and adjustment of other specified devices (principal); S52.591D Other fractures of lower end of right radius, subsequent encounter for closed fracture with routine healing; X58.XXXD Exposure to other specified factors, subsequent encounter; Z98.890 Other specified postprocedural states | CPT/HCPCS: 97760; L3908 ==

== ENCOUNTER 2022-06-15 14:24 | Outpatient (RCR) | payer OTHER, SELFPAY | END 2022-07-12 23:59 | disposition home or self-care (01) | LOC: SOT 14:24 | PROVIDERS: PCP Family Medicine; Visit Provider Student in an Organized Health Care Education/Training Program | DX: S52.501S Unspecified fracture of the lower end of right radius, sequela (principal); X58.XXXS Exposure to other specified factors, sequela | CPT/HCPCS: 97018; 97035; 97110; 97140; 97165 ==

== ENCOUNTER → 2022-07-08 08:05 | Outpatient (BNVA) | payer OTHER, SELFPAY | PROVIDERS: PCP Family Medicine; Visit Provider Student in an Organized Health Care Education/Training Program | DX: S52.552A Other extraarticular fracture of lower end of left radius, initial encounter for closed fracture (principal); X58.XXXA Exposure to other specified factors, initial encounter | CPT/HCPCS: 73110 ==

== ENCOUNTER 2022-07-13 06:00 | Outpatient (RCR) | payer OTHER, SELFPAY | END 2022-08-11 23:59 | disposition home or self-care (01) | LOC: SOT 06:00 | PROVIDERS: PCP Family Medicine; Visit Provider Student in an Organized Health Care Education/Training Program | DX: S52.501S Unspecified fracture of the lower end of right radius, sequela (principal); X58.XXXS Exposure to other specified factors, sequela | CPT/HCPCS: 97018; 97110; 97140 ==

== ENCOUNTER → 2022-08-19 07:48 | Outpatient (BNVA) | payer OTHER, SELFPAY | PROVIDERS: PCP Family Medicine; Visit Provider Student in an Organized Health Care Education/Training Program | DX: S52.552A Other extraarticular fracture of lower end of left radius, initial encounter for closed fracture (principal); X58.XXXA Exposure to other specified factors, initial encounter | CPT/HCPCS: 73110 ==

== ENCOUNTER 2022-12-13 08:13 | Outpatient (CLI) | payer OTHER, SELFPAY ==
--- NOTE | 2022-12-13 08:29 | MM_ITS ---
WS: [id number] BILATERAL SCREENING DIGITAL TOMOSYNTHESIS MAMMOGRAM WITH CAD HISTORY: SCREENING COMPARISON: 05/19/2021 Bilateral CC and MLO views with tomosynthesis and synthetic mammography submitted. Computer aided det ection analyzed. Breast composition: There are scattered areas of fibroglandular density. No suspicious masses, microc alcifications or architectural distortion. Biopsy clip in the central LEFT breast. MM/[id number] IMPRESSION: BI-RADS: 2-Benign FOLLOW UP: 1 Year Follow-up
== END 2022-12-13 08:14 | disposition home or self-care (01) ==
LOC: RAD 08:18
PROVIDERS: PCP Family Medicine; Visit Provider Family Medicine
DX: Z12.31 Encounter for screening mammogram for malignant neoplasm of breast (principal)
CPT/HCPCS: 77063; 77067

== ENCOUNTER → 2024-02-13 09:03 | Outpatient (BNVA) | payer OTHER, SELFPAY | PROVIDERS: PCP Family Medicine; Visit Provider Podiatrist Foot & Ankle Surgery | DX: M79.671 Pain in right foot (principal); M79.672 Pain in left foot; M72.2 Plantar fascial fibromatosis | CPT/HCPCS: 73630 ==

== ENCOUNTER 2024-02-20 10:04 | Outpatient (CLI) | payer OTHER, SELFPAY ==
--- NOTE | 2024-02-20 10:10 | MM_ITS ---
WS: [id number] BILATERAL SCREENING DIGITAL TOMOSYNTHESIS MAMMOGRAM WITH CAD HISTORY: SCREENING COMPARISON: 12/13/2022, 05/19/2021 Bilateral CC and MLO views with tomosynthesis and synthetic mammography submitted. Computer aided det ection analyzed. Breast composition: There are scattered areas of fibroglandular density. No suspicious masses, microc alcifications or architectural distortion. Prior biopsy clip 3:00 LEFT breast at a middle depth. No a ssociated calcification or mass. MM/[id number] IMPRESSION: BI-RADS: 2-Benign FOLLOW UP: 1 Year Follow-up
== END 2024-02-20 10:05 | disposition home or self-care (01) ==
LOC: RAD 10:04
PROVIDERS: PCP Family Medicine; Visit Provider Family Medicine
DX: Z12.31 Encounter for screening mammogram for malignant neoplasm of breast (principal); R92.323 Mammographic fibroglandular density, bilateral breasts
CPT/HCPCS: 77063; 77067